=== PATIENT | female | born 1995 ===

== ENCOUNTER 2021-07-27 19:40 | Emergency (ER) | payer BC, OTHER ==
--- OUTSIDE RECORDS SUMMARY | 2021-07-27 19:43 | XMS REPORT | Continuity of Care Document ---
:1995 Author Organization [facility] t Address [address] [place] [address] Care Team Providers Name Role Phone Mae Maurer Attending Clinician Unavailable Mae Maurer Admitting Clinician Unavailable Valdo Wiley Admitting Clinician Unavailable Payers Payer Name Policy Type Policy Number Effective Date Expiration Date S ource Problems This patient has no known problems. Allergies, Adverse Reactions, Alerts Allergy Allergy Status Severity Reaction(s) Onset Inactive Treating Comm ents Source Name Type Date Date Clinician No Known DA Active [facility] No Known DA Active U [facility] 00 [facility] No Known DA Active U [facility] 00 [facility] No Known DA Active U 2012-04 [facility] 2 [facility] 00 [facility] Medications This patient has no known medications. Procedures Procedure Date / Time Performed Performing Clinician Sour e [id number] 2020-07-05 00:00:00 [facility] [id number] 2020-07-05 00:00:00 [facility] [id number] 2020-07-05 00:00:00 [facility] Encounters Start End Encounter Admission Attending Care Care Encounter Source Date/Time Date/Time Type Type Clinicians Facility Department ID 2020-07-05 Inpatient Daniel Glaser [facility] [id number] [facility] 09:19[id number] 13:00[facility]00 [id number] [facility]02 In[facility] Daniel Maurer [facility] [id number] [facility] 13:00:00 [id number] [facility] [place] 2020-02-23 2020-02-23 [id number] 07:00:00 07:00:00 [facility] [place] Results Test Description Test Time Test Comments Results Result Comments Source HGB HCT 2020-07-06 09:01:00 Test Item Value Reference Range Interpretation Comme nts HEMOGLOBIN (test code = HGB) 9.7 g/dL 10.1-13.8 L HEMATOCRIT (test code = HCT) 30.3 % 32.5-41.8 L AG HEPATITIS B [id number] 11:29:00 Test Item Value Reference Range Interpretation Comments AG HEPATITIS B SURFACE (test code NONREACTIVE NONREACTIVE = HBSAG) IS CONSENT FORM SIGNED FOR HIV TESTING? YAB HEPATITIS C [id number] 11:29:00 Test Item Value Reference Range Interpretation Comments AB HEPATITIS C (test code = NONREACTIVE NONREACTIVE HCVAB) SIGNAL TO CUTOFF (test code = 0.05 <0.80 N CUTOFF) IS CONSENT FORM SIGNED FOR HIV TESTING? YAB [id number] 11:29:00 Test Item Value Reference Range Interpretation Comments AB TREPONEMA (test code = TREPAB) NONREACTIVE NONREACTIVE IS CONSENT FORM SIGNED FOR HIV TESTING? YAB HIV 1 11:29:00 Test Item Value Reference Range Interpretation Comments AB HIV 1 2 (test NONREACTIVE NONREACTIVE [facility] = [id number]) 4th Gen HIV Ag/Ab Combo Screen IS CONSENT FORM SIGNED FOR HIV TESTING? YAG HEPATITIS B [id number] 11:01:00 Test Item Value Reference Range Interpretation Comments AG HEPATITIS B SURFACE (test code NONREACTIVE NONREACTIVE = HBSAG) IS CONSENT FORM SIGNED FOR HIV TESTING? YAB HEPATITIS C [id number] 11:01:00 Test Item Value Reference Range Interpretation Comments AB HEPATITIS C (test code = HCVAB) NONREACTIVE SIGNAL TO CUTOFF (test code = CUTOFF) <0.80 IS CONSENT FORM SIGNED FOR HIV TESTING? YAB [id number] 11:01:00 Test Item Value Reference Range Interpretation Comments AB TREPONEMA (test code = TREPAB) NONREACTIVE NONREACTIVE IS CONSENT FORM SIGNED FOR HIV TESTING? YAB HIV 1 11:01:00 Test Item Value Reference Range Interpretation Comments AB HIV 1 2 (test code = TFR60XC) NONREACTIVE IS CONSENT FORM SIGNED FOR HIV TESTING? YCBC W/AUTO [id number] 10:15:00 Test Item Value Reference Range Interpretation Comments WHITE BLOOD CELL (test code = WBC) 8.7 K/mm3 6.5-12.3 N RED BLOOD CELL (test code = RBC) 4.15 M/mm3 3.51-4.69 N HEMOGLOBIN (test code = HGB) 12.1 g/dL 10.1-13.8 N HEMATOCRIT (test code = HCT) 36.6 % 32.5-41.8 N MEAN CELL VOLUME (test code = MCV) 88.2 fL 84.6-96.6 N MEAN CELL HGB (test code = MCH) 29.2 pg 27.3-33.9 N MEAN CELL HGB CONCETRATION (test 33.1 gm/dL 32.0-34.2 N code = MCHC) RED CELL DISTRIBUTION WIDTH (test 13.2 % 12.2-16.3 N code = RDW) PLATELET COUNT (test code = PLT) 223 K/mm3 134-363 N MEAN PLATELET VOLUME (test code = 10.8 fL 9.2-12.7 N MPV) NEUTROPHIL % (test code = NT%) 68.8 % 57.9-77.3 N LYMPHOCYTE % (test code = LY%) 19.7 % 14.5-29.7 N MONOCYTE % (test code = MO%) 8.8 % 3.6-10.2 N EOSINOPHIL % (test code = EO%) 0.9 % 0.0-3.0 N BASOPHIL % (test code = BA%) 0.5 % 0.1-0.9 N NEUTROPHIL # (test code = NT#) 6.0 K/mm3 LYMPHOCYTE # (test code = LY#) 1.7 K/mm3 MONOCYTE # (test code = MO#) 0.8 K/mm3 EOSINOPHIL # (test code = EO#) 0.08 K/mm3 BASOPHIL # (test code = BA#) 0.0 K/mm3 RBC MORPHOLOGY REQUIRED (test code NORMAL NORMAL = RBCM) PLATELET MORPHOLOGY REQUIRED (test NORMAL NORMAL code = PLTMR) COVID 19 Asymptomatic IH [id number] 17:35:00 Test Item Value Reference Range Interpretation Comments COVID 19 NEGATIVE NEGATIVE This test has b een Asymptomatic IH AG authorize d only for the (test code = detection ofpro teins from COVNONPUIAG) SARS-CoV-2, not for any other viruses orpathogens. N egative results should be treated as presumptive andconfirmed wi th a molecular assay , if necessary for patientmanageme nt. Negative result s do not rule out COVID- 19 andshould not b e used as the sole basis for treatment orpat ient management deci sions, including infec tion controldecision s. Negative result s should be considered i n thecontext of a patient's recent exposure s, history and thepresence of clinical signs and symptoms consis tent withCOVID-19. T his test has not been FD A cleared or approved; th e test hasbeen authori colby by FDA under an Emerge ncy Use Authorization(E UA) for use by laborato jed certified under the CLIA thatmeet the re quirements to perform mode rate, high or waivedcomple xity tests. This kimberly t is authorized for use at thePoint of Car e (POC), i.e., in patien t care settingsoperati ng under a CLIA Certificat e of Waiver, Certifi alejo ofCompliance, o r Certificate of Accreditation. This test is only authori zedouglas for the duration of thedeclaration that circumstances e xist justifying theauthorizatio n of emergency use o f in vitro diagnostic test sfor detection and/o r diagnosis of CO VID-19 under Tkufpvc90 4(b)(1) of the Act, 21 U.S .C. 360bbb-3(b)(1), unless theauthorizatio n is terminated or r evoked sooner. - US PREG AFTER [id number] 09:01:00 [facility] : 1995 Sex: F Patient Name: BRITTANY OLVERA Unit No: [id number] EXAMS: CPT CODE: [id number] US PREG AFTER TRI [id number] [facility] [address], [place] [address] OBSTETRICAL ULTRASOUND REPORT Pat. Name: BRITTANY OLVERA Pat. No: [id number] Study Date: 02/23/2020 8:00am , Age: 01 1995, 24 Pregnancies: 3, Para 2001 LMP: 09/29/2019 GA by LMP: 21w0d GA by US: 20w5d GA Selected: 21w0d (LMP) EMILY: 07/05/2020 Referring MD: DANIEL MAURER Quality Assurance Calibrator: Erinn Bhakta RDMS CPT4: [id number] Admitting MD: DANIEL MAURER Hist/Ind: SCAN#1 ANATOMY MEASUREMENTS AGE GROWTH EVALUATION Measurement GA Range Srce %for GA Ratios ----- BPD 4.7 cm 20w1d (33v6p-62z5b) Hadl BPD 26% FL/BPD 0.74 HC 18.6 cm 20w6d (48u6t-79m3o) Hadl HC 46% FL/AC 0.21 APD 5.5 cm APD HC/AC 1.10 (1.05 - 1.24) TAD 5.3 cm TAD CI 0.72 (0.70 - 0.86) AC 17.0 cm 21w5d (64d2q-88s0n) Hadl AC 66% FL 3.5 cm 20w5d (57v5m-76q2p) Hadl FL 43% HL 3.5 cm 22w0d (17q0n-27s8k) Randy HL 67% GA for sonogram 20w5d (60x5c-40b9a) Weight Estimate: based on (B PD,HC,AC,FL) Hadlock Weight: 423 gm (361-485) Hadlock : 0lbs, 14oz Normal: 410 gm (280-860) João Wt% 51% for 21.0 wks Cervical Length: 4.4 cm Heart Rate: 146 bpm MATERNAL ANATOMY Ovaries LxHxW (cm) Right 2.9 x 2.0 x 1.6 Vol: 4.9cc Left 2.4 x 1.3 x 1.5 Vol: 2.5cc Ovarian Cysts LxHxW (cm) R1: 1.3 x 1.0 x 1.3 CLINICAL SUMMARY Type of Gestation: Hollins Intrauterine in vertex presentation. size is appropriate for gestational age. growth: [facility] NAME: BRITTANY OLVERA Radiology Department PHYS:Daniel Oneal III, MD [address] : 1995 AGE: 24 SEX: F [place], [place] [address] LOC: MendelRAD PHONE #: [phone] EXAM DATE: 02/23/2020 STATUS: REG CLI FAX #: [phone] RAD NO: Page 1 Signed Report (CONTINUED) Patient Name: BRITTANY OLVERA Unit No: [id number] EXAMS: CPT CODE: [id number] US PREG AFTER TRI 74216 <Continued> Consistent with normal growth motion and organs seen: heart motion seen body and limb movements seen Four chamber heart observed Left ventricular outflow tract (LVOT) seen Right ventricular outflow tract (RVOT) seen Regular cardiac rhythm observed Normal intracranial anatomy seen face and nasal bone seen Umbilical cord insertion in fetus seen stomach, Renal Fossa, Bladder and Spine seen Three vessel umbilical cord noted All four extremities observed abnormalities observed: None seen at this exam Placental location: Anterior Placental maturity : Grade 1 There is no evidence of placenta previa. Amniotic fluid volume is normal. Uterus and adnexa: No significant abnormality is seen. Thank you for allowing us to participate in the care of this patient. Danny Dumas M.D Electronic Signature 02/23/2020 09:01am at 0901 Reported and signed by: Danny Dumas MD CC: Daniel Maurer III, MD Technologist: Erinn Bhakta RDMS Probe: Trnscrbd D/ (900) [id number] Orig Print D/T: S: 02/23/2020 (900) [facility] NAME: OLVERABRITTANY Radiology Department PHYS: Daniel Oneal III, MD [address] : 1995 AG E: 24 SEX: [place] [address] LOC: [place].RAD PHONE #: [phone] EXAM DATE: 02/23/2020 STATUS: REG CLI FAX #: [phone] RAD NO: Page 2 Signed Report Patient Name: BRITTANY OLVERA Unit No: [id number] EXAMS: CPT CODE: [id number] US PREG AFTER 1ST TRI [address]10 <Continued> [facility] NAME: BRITTANY OLVERA Radiology Department PHYS: Daniel Devries III, MD [address] : 1995 AGE: 24 SEX: F [place] [address] LOC: [place].RAD PHONE #: [phone] EXAM DATE: 02/23/2020 STATUS: REG CLI FAX #: [phone] RAD NO: Page 3 Signed Report
[2021-07-27 21:00] LABS: SARS-COV-2 RT PCR NEGATIVE (NEGATIVE)
--- NOTE | 2021-07-27 21:36 | EDPHYS ---
Physician Documentation [facility] Name: Frances Kathleen Age: 26 yrs Sex: Female : 1995 Arrival Date: 07/27/2021 Time: 19:46 Bed 5 Private MD: ED Physician Manny Yang HPI: 07/27 20:17 This 26 yrs old Female presents to ER via Ambulatory with complaints of Fever, pm1 Congestion, Headache, BODYACHES. 20:17 The patient reports fever, that was measured at 100 degrees Fahrenheit. Onset: The pm1 symptoms/episode began/occurred yesterday. Modifying factors: there are no obvious modifying factors. Associated signs and symptoms: Pertinent positives: diarrhea, headache, bodyaches, Pertinent negatives: cough, shortness of breath, vomiting. Severity of symptoms: in the emergency department the symptoms are unchanged. The patient has not experienced similar symptoms in the past. The patient has not recently seen a physician. STAFF DEVELOPMENT COORDINATOR RN: 19:59 LMP 07/05/2021 lg3 Historical: - Allergies: 19:59 No Known Allergies; lg3 - Home Meds: 19:59 Zoloft Oral [Active]; lg3 - PMHx: 19:59 anxiety; depression; 1st degree AV block; lg3 - PSHx: 19:59 None; lg3 - Immunization history:: Adult Immunizations up to date, Client reports having NOT received the Covid vaccine. - Social history:: Smoking status: Patient denies any tobacco usage or history of. Patient/guardian denies using alcohol, street drugs. ROS: 20:17 Cardiovascular: Negative for chest pain, palpitations, and edema, Respiratory: Negative pm1 for shortness of breath, cough, wheezing, and pleuritic chest pain. 20:17 Abdomen/GI: Negative for abdominal pain, nausea, vomiting, diarrhea, and constipation, Back: Negative for injury and pain, MS/Extremity: Negative for injury and deformity, Skin: Negative for injury, rash, and discoloration, Neuro: Negative for headache, weakness, numbness, tingling, and seizure. 20:17 Constitutional: Positive for body aches, Negative for fever. 20:17 ENT: Positive for sore throat. 20:17 All other systems are negative. Exam: 20:17 Constitutional: This is a well developed, well nourished patient who is awake, alert, pm1 and in no acute distress. Head/Face: Normocephalic, atraumatic. 20:17 Back: No spinal tenderness. No costovertebral tenderness. Full range of motion. Skin: Warm, dry with normal turgor. Normal color with no rashes, no lesions, and no evidence of cellulitis. MS/ Extremity: Pulses equal, no cyanosis. Neurovascular intact. Full, normal range of motion. 20:17 Cardiovascular: Exam negative for acute changes, Rate: normal, Rhythm: regular, Pulses: no pulse deficits are appreciated, Heart sounds: normal. 20:17 Respiratory: Exam negative for acute changes, respiratory distress, shortness of breath, Breath sounds: are clear throughout. 20:17 Neuro: Exam negative for acute changes, Orientation: is normal, Mentation: is normal, Motor: is normal, moves all fours. Vital Signs: 19:57 BP 104 / 70; Pulse 93; Resp 17 S; Temp 98.3; Pulse Ox 99% on R/A; Weight 63.05 kg (R); lg3 Height 5 ft. 8 in. (172.72 cm) (R); Pain 0/10; 22:42 BP 104 / 65; Pulse 86; Resp 18; Temp 97.8(O); Pulse Ox 98% ; ke1 19:57 Body Mass Index 21.13 (63.05 kg, 172.72 cm) lg3 MDM: 20:17 Patient medically screened. pm1 21:33 Data reviewed: vital signs. Data interpreted: Pulse oximetry: on room air is 99 %. pm1 Interpretation: normal. Counseling: I had a detailed discussion with the patient and/or guardian regarding: the historical points, exam findings, and any diagnostic results supporting the discharge/admit diagnosis, lab results, the need for outpatient follow up, to return to the emergency department if symptoms worsen or persist or if there are any questions or concerns that arise at home. 21:33 Differential diagnosis: URI, covid, influenza, strep. pm1 03 20:03 Order name: COVID-19/FLU A+B (Document "Date of Onset" if Symptomatic); Complete Time: lg3 21:29 07/27 20:03 Order name: Strep; Complete Time: 21:00 3 07/27 20:53 Order name: Throat Culture EDMS Administered Medications: 22:41 Drug: Tylenol 650 mg Route: PO; [facility] 22:41 Follow up: Response: Medication administered at discharge. 1 Disposition: 07/28 07:05 Co-signature as Attending Physician, Manny Yang MD. 7 Disposition Summary: 07/27/21 21:34 Discharge Ordered Location: Home pm1 Problem: new pm1 Symptoms: have improved pm1 Condition: Stable pm1 Diagnosis - Influenza due to identified novel influenza A virus pm1 Followup: pm1 - With: Emergency Department - When: As needed - Reason: Worsening of condition Followup: pm1 - With: Private Physician - When: 2 - 3 days - Reason: Recheck today's complaints, Continuance of care, Re-evaluation by your physician Discharge Instructions: - Discharge Summary Sheet pm1 - Influenza, Adult, [id number] pm1 Forms: - Medication Reconciliation Form pm1 - Thank You Letter pm1 - Work release form pm1 - Antibiotic Education pm1 - Prescription Opioid Use pm1 Prescriptions: - Tamiflu 75 mg Oral Capsule - take 1 tablet by ORAL route every 12 hours for 5 days; 10 tablet; Refills: 0, pm1 Product Selection Permitted Signatures: Dispatcher [employer] EDMS David Godinez NP WASHCOAT WIPER pm1 Laura Rm RN RN 3 Manny Yang MD MD [facility] Conchita Walters RN RN 1
--- NOTE | 2021-07-27 21:36 | ER ---
Nurse's Notes [facility] Name: Frances Kathleen Age: 26 yrs Sex: Female : 1995 Arrival Date: 07/27/2021 Time: 19:46 Bed 5 Private MD: Diagnosis: Influenza due to identified novel influenza A virus Presentation: 07/27 19:57 Chief complaint: Patient states: diarrhea and cough for last few days. body aches and lg3 sore throat starting this morning. Coronavirus screen: Client denies travel out of the [place] in the last 14 days. Client presents with at least one sign or symptom that may indicate coronavirus-19. Standard/surgical mask placed on the client. Ebola Screen: No symptoms or risks identified at this time. Initial Sepsis Screen: Does the patient meet any 2 criteria? No. Patient's initial sepsis screen is negative. Does the patient have a suspected source of infection? No. Patient's initial sepsis screen is negative. Risk Assessment: Do you want to hurt yourself or someone else? Patient reports no desire to harm self or others. Onset of symptoms was July 27, 2021. 19:57 Method Of Arrival: Ambulatory lg3 19:57 Acuity: HERBERTH 4 lg3 Triage Assessment: 19:59 General: Appears in no apparent distress. comfortable, Behavior is calm, cooperative. lg3 Pain: Denies pain. EENT:. EENT: No deficits noted. No signs and/or symptoms were reported regarding the EENT system. Neuro: No deficits noted. Level of Consciousness is awake, alert, obeys commands, Oriented to person, place, time, situation. Cardiovascular: No deficits noted. Denies chest pain, shortness of breath. Respiratory: No deficits noted. Reports cough that is Airway is patent Trachea midline Respiratory effort is even, unlabored, Respiratory pattern is regular, symmetrical. GI: No deficits noted. No signs and/or symptoms were reported involving the gastrointestinal system. : No deficits noted. No signs and/or symptoms were reported regarding the genitourinary system. Derm: No deficits noted. No signs and/or symptoms reported regarding the dermatologic system. Skin is intact, is healthy with good turgor, Skin is dry. Musculoskeletal: No deficits noted. No signs and/or symptoms reported regarding the musculoskeletal system. Circulation, motion, and sensation intact. Capillary refill < 3 seconds, Range of motion: intact in all extremities. 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 - Social history:: Smoking status: Patient denies any tobacco usage or history of. Patient/guardian denies using alcohol, street drugs. Screenin:02 Abuse screen: Denies threats or abuse. Denies injuries from another. Nutritional lg3 screening: No deficits noted. Tuberculosis screening: No symptoms or risk factors identified. Fall Risk None identified. Assessment: 20:18 General: Appears in no apparent distress. Behavior is calm, appropriate for age. Pain: ke1 Denies pain. Neuro: Level of Consciousness is awake, alert, Oriented to person, place, time, situation. Cardiovascular: Heart tones S1 S2 Capillary refill < 3 seconds JVD is absent Patient's skin is warm and dry. Respiratory: Breath sounds are clear bilaterally. GI: No deficits noted. : No deficits noted. EENT: No deficits noted. Derm: No deficits noted. Musculoskeletal: No deficits noted. 20:38 Respiratory: Airway is patent Trachea midline Respiratory effort is even, unlabored, ke1 Respiratory pattern is regular, symmetrical. Vital Signs: 19:57 BP 104 / 70; Pulse 93; Resp 17 S; Temp 98.3; Pulse Ox 99% on R/A; Weight 63.05 kg (R); lg3 Height 5 ft. 8 in. (172.72 cm) (R); Pain 0/10; 22:42 BP 104 / 65; Pulse 86; Resp 18; Temp 97.8(O); Pulse Ox 98% ; ke1 19:57 Body Mass Index 21.13 (63.05 kg, 172.72 cm) lg3 ED Course: 19:46 Patient arrived in ED. ja2 19:59 Triage completed. lg3 19:59 Arm band placed on right wrist. lg3 20:00 Call light in reach. ke1 20:03 David Godinez NP is PHCP. pm1 20:03 Manny Yang MD is Attending Physician. pm1 20:03 Conchita Walters, RN is Primary Nurse. ke1 20:06 Strep Sent. lg3 20:06 COVID-19/FLU A+B (Document "Date of Onset" if Symptomatic) Sent. lg3 22:43 No provider procedures requiring assistance completed. Patient did not have IV access ke1 during this emergency room visit. Administered Medications: 22:41 Drug: Tylenol 650 mg Route: PO; ke1 22:41 Follow up: Response: Medication administered at discharge. ke1 Outcome: 21:34 Discharge ordered by MD. pm1 22:43 Discharged to home ambulatory. ke1 22:43 Condition: good 22:43 Discharge instructions given to patient. 22:44 Patient left the ED. ke1 Signatures: David Godinez NP INSPECTOR AND HAND PACKAGER pm1 Laura Rm RN RN lg3 Shwetha Bedoya [facility] Conchita Walters, PARISA RN ke1 Corrections: (The following items were deleted from the chart) 22:43 22:42 BP 104 / 65; ke1 ke1
[2021-07-27] MEDS ORDERED: ACETAMINOPHEN 325 MG TABLET ONE (22:40)
[2021-07-27 22:51] VITALS: BP 104/65; TEMP 97.8; O2SAT 98
== END 2021-07-27 22:44 | disposition home or self-care (01) ==
LOC: ER 19:40
DX: J09.X9 Influenza due to identified novel influenza A virus with other manifestations (principal); F41.8 Other specified anxiety disorders; Z20.822 Contact with and (suspected) exposure to COVID-19
CPT/HCPCS: 87070; 87081; 0240U; 99283